=== PATIENT | male | born 2000 | race Caucasian/White ===

== ENCOUNTER 2021-08-28 00:21 | Emergency (ER) | payer SELFPAY ==
[2021-08-28] MEDS ORDERED: LORazepam 2 MG/ML VIAL IM ONE (00:30)
[2021-08-28] MEDS ORDERED: OLANZapine INTRAMUSCULAR 10MG VIAL IM ONE (00:30)
[2021-08-28] MEDS ORDERED: LORazepam 2 MG/ML VIAL As Ordered ONE (01:07)
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
[2021-08-28 01:30] LABS: HEMATOCRIT 42.6 % (42.0-52.0); HEMOGLOBIN 14.2 g/dl (13.5-17.5); MEAN CORPUSCULAR HEMOGLOBIN 29.6 pg (27.0-33.0); MEAN CORPUSCULAR HGB CONC 33.3 g/dl (32.0-36.5); MEAN CORPUSCULAR VOLUME 88.8 fl (80.0-96.0); PLATELET COUNT, AUTOMATED 265 10^3/uL (150-450); WHITE BLOOD COUNT 6.4 10^3/uL (4.0-10.0)
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
[2021-08-28 01:58] LABS: AMPHETAMINES LEVEL URINE NEGATIVE (NEGATIVE); BARBITURATES URINE NEGATIVE (NEGATIVE); BENZODIAZEPINES URINE NEGATIVE (NEGATIVE); CANNABINOIDS URINE NEGATIVE (NEGATIVE); COCAINE METABOLITE URINE NEGATIVE (NEGATIVE); METHADONE URINE NEGATIVE (NEGATIVE); OPIATES URINE NEGATIVE (NEGATIVE); PHENCYCLIDINE URINE NEGATIVE (NEGATIVE)
[2021-08-28 01:59] LABS: ACETAMINOPHEN LEVEL < 2.0 UG/ML (10.0-30.0); ALBUMIN 4.3 GM/DL (3.2-5.2); ALT/SGPT 27 U/L (12-78); BILIRUBIN,DIRECT 0.1 MG/DL (0.0-0.2); BILIRUBIN,TOTAL 0.3 MG/DL (0.2-1.0); BLOOD UREA NITROGEN 13 MG/DL (7-18); CALCIUM LEVEL 9.1 MG/DL (8.5-10.1); CARBON DIOXIDE LEVEL 25 MEQ/L (21-32); CHLORIDE LEVEL 105 MEQ/L (98-107); CREATININE FOR GFR 0.86 MG/DL (0.70-1.30); GLOMERULAR FILTRATION RATE > 60.0 (>60); GLUCOSE, FASTING 114 MG/DL (70-100); POTASSIUM SERUM 3.8 MEQ/L (3.5-5.1); SALICYLATE LEVEL < 1.7 MG/DL (5.0-30.0); SODIUM LEVEL 138 MEQ/L (136-145); TOTAL PROTEIN 7.2 GM/DL (6.4-8.2)
[2021-08-28] MEDS ORDERED: NS 1,000 ML IV ONE (02:35)
[2021-08-28 14:09] VITALS: BP 136/76
[2021-08-29] MEDS ORDERED: ACET-683 PO (12:21)
== END 2021-08-28 14:12 | disposition home or self-care (01) ==
LOC: M ED 00:21
DX: F10.129 Alcohol abuse with intoxication, unspecified (principal); S09.93XA Unspecified injury of face, initial encounter; W22.8XXA Striking against or struck by other objects, initial encounter; Y92.9 Unspecified place or not applicable; Y93.89 Activity, other specified; Y99.9 Unspecified external cause status
CPT/HCPCS: 70450; 70486; 72125; 80048; 80076; 80143; 80307; 82077; 84443; 85027; 96360; 96372; 99285; J2060

== ENCOUNTER 2021-08-29 08:12 | Emergency (ER) | payer OTHER ==
[~2021-08-29] VITALS: Ht 172.7 cm; Wt 68.5 kg
[2021-08-29 08:12] VITALS: BP 144/95
[2021-08-29] MEDS ORDERED: ACETAMINOPHEN 500 MG TAB PO ONE (12:15)
[2021-08-29] MEDS ORDERED: ACET-683 PO (12:21)
[2021-08-29] MEDS ORDERED: NEOSPORIN TOP OINT 15GM TOP ONE (12:25)
== END 2021-08-29 12:35 | disposition home or self-care (01) ==
LOC: M ED 08:12
DX: S00.0 Superficial injury of scalp (principal); S05.12XS Contusion of eyeball and orbital tissues, left eye, sequela; W22.8XXS Striking against or struck by other objects, sequela; Y92.9 Unspecified place or not applicable; Y93.9 Activity, unspecified; Y99.9 Unspecified external cause status; R51.9 Headache, unspecified; R42 Dizziness and giddiness